=== PATIENT | male | born 1980 | race African-American/Black ===

== ENCOUNTER 2016-09-21 18:41 | Emergency (ER) | payer OTHER ==
[~2016-09-21] VITALS: Ht 172.7 cm; Wt 97.5 kg
[2016-09-21 19:30] LABS: PLATELET COUNT 211 K/uL (142-355)
[2016-09-21 19:34] LABS: POTASSIUM 3.8 mmol/L (3.6-5.2); SODIUM 138 mmol/L (136-145)
[2016-09-21 22:50] VITALS: BP 188/103; TEMP 99.8
== END 2016-09-21 22:56 | disposition home or self-care (01) ==
LOC: ED 18:41
DX: K83.1 Obstruction of bile duct (principal); K57.30 Diverticulosis of large intestine without perforation or abscess without bleeding
CPT/HCPCS: 36415; 80053; 81000; 85027; 86318; 99283; Q9963

== ENCOUNTER 2018-09-16 18:42 | Outpatient (CLI) | payer OTHER | END 2018-09-16 18:49 | disposition short-term general hospital (02) | LOC: AMB 18:42 | DX: M79.604 Pain in right leg (principal); R10.9 Unspecified abdominal pain; S41.112A Laceration without foreign body of left upper arm, initial encounter; S01.81XA Laceration without foreign body of other part of head, initial encounter; V59.9XXA Occupant (driver) (passenger) of pick-up truck or van injured in unspecified traffic accident, initial encounter; Y92.413 State road as the place of occurrence of the external cause | CPT/HCPCS: A0425; A0427 ==

== ENCOUNTER 2018-09-16 18:53 | Observation (INO) | payer OTHER ==
[~2018-09-16] VITALS: Ht 162.6 cm; Wt 92.1 kg
[2018-09-16 19:14] VITALS: BP 136/89; TEMP 97.5
[2018-09-16 19:25] LABS: PLATELET COUNT 252 K/uL (142-355)
[2018-09-16 19:34] LABS: POTASSIUM 3.7 mmol/L (3.6-5.2)
[2018-09-16 23:05] VITALS: BP 111/66; TEMP 98.8
[2018-09-16 23:45] VITALS: BP 123/77; TEMP 97.9
[2018-09-17] VITALS (21 sets, daily range): BP systolic 119–152; BP diastolic 56–97; TEMP 97.9–99.8; Ht 162.6 cm; Wt 92.1 kg
[2018-09-17 06:54] LABS: PLATELET COUNT 229 K/uL (142-355)
[2018-09-17 08:04] LABS: POTASSIUM 3.9 mmol/L (3.6-5.2)
[2018-09-18 04:00] VITALS: BP 141/90; TEMP 97.7
[2018-09-18 08:00] VITALS: BP 126/73; TEMP 97.9
[2018-09-18 12:00] VITALS: BP 112/76; TEMP 98.2
[2018-09-18] MEDS ORDERED: HYDR5TAB9 PO (14:52)
== END 2018-09-18 16:10 | disposition home or self-care (01) ==
LOC: ED 18:53 → ICU 22:57 → MED/SURG 09-17 21:25
PROVIDERS: Family Medicine; ADMIT Internal Medicine
PROC: 0HQ0XZZ Repair Scalp Skin, External Approach (ICD-10-PCS; principal; 2018-09-16)
DX: S09.8XXA Other specified injuries of head, initial encounter (principal); V48.5XXA Car driver injured in noncollision transport accident in traffic accident, initial encounter; Y92.89 Other specified places as the place of occurrence of the external cause; S52.122A Displaced fracture of head of left radius, initial encounter for closed fracture; S51.812A Laceration without foreign body of left forearm, initial encounter; S01.01XA Laceration without foreign body of scalp, initial encounter
CPT/HCPCS: 36415; 80053; 80307; 80320; 81000; 85027; 90471; 90715; 96374; 96375; 96376; 99220; 99285; G0378; J2270; J2405; Q9963

== ENCOUNTER 2018-09-29 11:58 | Outpatient (CLI) | payer OTHER ==
[~2018-09-29 11:58] MED LIST: HYDR5TAB9 PO
== END 2018-09-29 19:39 | disposition home or self-care (01) ==
LOC: US 11:58
DX: S70.12XA Contusion of left thigh, initial encounter (principal)

== ENCOUNTER 2018-12-21 13:19 | Emergency (ER) | payer OTHER ==
[~2018-12-21] VITALS: Ht 162.6 cm; Wt 97.5 kg
[2018-12-21 13:57] VITALS: BP 163/100; TEMP 98.5
== END 2018-12-21 14:02 | disposition home or self-care (01) ==
LOC: ED 13:19
DX: H60.92 Unspecified otitis externa, left ear (principal)
CPT/HCPCS: 96372; 99283; J0696; J1885

== ENCOUNTER 2018-12-21 22:52 | Emergency (ER) | payer OTHER ==
[~2018-12-21] VITALS: Ht 162.6 cm; Wt 97.5 kg
[2018-12-22 00:25] VITALS: BP 138/82; TEMP 101.5
== END 2018-12-22 00:24 | disposition home or self-care (01) ==
LOC: ED 22:52
DX: H60.92 Unspecified otitis externa, left ear (principal)
CPT/HCPCS: 96372; 99282; J1885

== ENCOUNTER 2021-05-01 20:58 | Emergency (ER) | payer OTHER ==
[~2021-05-01] VITALS: Ht 157.5 cm; Wt 102.1 kg
[2021-05-01 22:45] VITALS: BP 164/86; TEMP 98
== END 2021-05-01 22:45 | disposition home or self-care (01) ==
LOC: ED 20:58
DX: G51.0 Bell's palsy (principal); K04.7 Periapical abscess without sinus; I10 Essential (primary) hypertension
CPT/HCPCS: 96372; 99283; J0696; J2175; J2405; J2920